=== PATIENT | female | born 2000 | race Asian ===

== ENCOUNTER 2018-01-20 12:18 | Outpatient (CLI) | payer OTHER ==
--- NOTE | 2018-01-20 14:43 | MRI ---
MRI RIGHT HIP PERFORMED WITHOUT CONTRAST ENHANCEMENT: Date: 01/20/18 HISTORY: Right hip pain since November. FINDINGS: The SI joints are symmetric. There are no signs of any type of pelvic insufficiency fracture. Visuali zed intrapelvic contents appear unremarkable. Small field of view images of the right hip were performed. Gluteus minimus and medius tendon inserti ons appear unremarkable. Limited evaluation of the hip labrum shows no definitive abnormality. No signs of any stress reaction or fracture. No signs of any trochanteric bursitis. IMPRESSION: Unremarkable MRI of the right hip. POS: [facility]
== END 2018-01-20 12:19 | disposition home or self-care (01) ==
LOC: BICMRI 12:18
PROVIDERS: ATTEND Orthopaedic Surgery
DX: M25.551 Pain in right hip (principal)